=== PATIENT | female | born 1935 | race Caucasian/White ===

== ENCOUNTER → 2018-05-10 | Outpatient (CLI) | payer MEDICARE, OTHER | END | disposition home or self-care (01) | LOC: PCVCCLINIC 15:45 | DX: I25.10 Atherosclerotic heart disease of native coronary artery without angina pectoris (principal); I10 Essential (primary) hypertension; E78.5 Hyperlipidemia, unspecified; K44.9 Diaphragmatic hernia without obstruction or gangrene; R94.31 Abnormal electrocardiogram [ECG] [EKG]; I42.9 Cardiomyopathy, unspecified; Z79.82 Long term (current) use of aspirin; Z79.899 Other long term (current) drug therapy; Z88.8 Allergy status to other drugs, medicaments and biological substances | CPT/HCPCS: 93005; G0463 ==

== ENCOUNTER → 2018-07-12 | Outpatient (CLI) | payer MEDICARE, OTHER ==
--- NOTE | 2018-07-12 12:19 | PCVCIMAG ---
APPROVED REPORT Study performed: 07/12/2018 10:05:04 EXAM: Comprehensive 2D, Doppler, and color-flow Echocardiogram Patient Location: Echo lab Status: routine BSA: 1.88 HR: 61 bpmBP: 136/80 mmHg Rhythm: NSR Other Information Study Quality: Adequate Risk Factors: Cardiac Risk Factors: HTN Indications CAD Cardiomyopathy 2D Dimensions LVEF(%): 63.95 (>50%) IVSd: 11.22 (7-11mm) LVDd: 35.91 mm PWd: 9.53 (7-11mm)Ascending Ao: 33.19 (22-36mm) LVDs: 23.69 (25-40mm) Left Atrium: 42.00 (27-40mm) Aortic Root: 29.89 mm LV Single Plane 4CH: 57.45 % LV Single Plane 2CH: 60.97 %Garcia's LVEF: 59.21 % Biplane EF: 59.1 % Volumes Left Atrial Volume (Systole) Single Plane 4CH: 83.29 mLSingle Plane 2CH: 57.34 mL LA ESV Index: 40.00 mL/m2 Aortic Valve AoV Peak Robert.: 1.34 m/s AO Peak Gr.: 7.23 mmHgLVOT Max P.96 mmHg LVOT Max V: 1.00 m/s AI Vmax: 4.43 m/s AI Bryan: 2.41 m/s2 AI PHT: 532.94 ms Mitral Valve E/A Ratio: 2.4 MV Decel. Time: 219.65 ms MV E Max Robert.: 0.83 m/s MV A Robert.: 0.34 m/s IVRT: 124.57 ms Pulmonary Valve PV Peak Robert.: 0.88 m/sPV Peak Gr.: 3.07 mmHg Pulmonary Vein P Vein S: 0.26 m/sP Vein A: 0.26 m/s P Vein D: 0.36 m/sP Vein A Dur.: 124.6 msec P Vein S/D Ratio: 0.72 Tricuspid Valve TR Peak Robert.: 2.72 m/s TR Peak Gr.: 29.59 mmHg Left Ventricle The left ventricle is normal size. There is normal LV segmental wall motion. There is normal left ventricular wall thickness. Left ventricular systolic function is normal. The left ventricular ejection fraction is within the normal range. LVEF is 55-60%. Grade II - pseudonormal filling dynamics. Right Ventricle The right ventricle is normal size. The right ventricular systolic function is normal. Atria Left atrium is mildly dilated. The right atrium size is mildly dilated. Aortic Valve The aortic valve is mildly sclerotic. Mild aortic regurgitation. There is no aortic valvular stenosis. Mitral Valve Mild mitral annular calcification. Mild to moderate mitral regurgitation. No evidence of mitral valve stenosis. Tricuspid Valve The tricuspid valve is normal in structure. Mild tricuspid regurgitation with PAP of 37 mmHg. Pulmonic Valve The pulmonary valve is normal in structure. Mild to moderate pulmonic regurgitation. Great Vessels The aortic root is normal in size. IVC is normal in size and collapses with >50% inspiration Pericardium There is no pericardial effusion. There is no pleural effusion. <Conclusion> Left ventricular systolic function is normal. There is normal LV segmental wall motion. LVEF is 55-60%. Moderate diastolic dysfunction Both atria are mildly dilated. The aortic valve is mildly sclerotic. Mild aortic regurgitation, no stenosis. Mild mitral annular calcification. Mild to moderate mitral regurgitation. Mild tricuspid regurgitation with pulmonary artery pressure of 37 mmHg. There is no pericardial effusion.
== END | disposition home or self-care (01) ==
LOC: PCVCIMAG 13:00
PROVIDERS: ATTEND Internal Medicine
DX: I08.3 Combined rheumatic disorders of mitral, aortic and tricuspid valves (principal); I42.9 Cardiomyopathy, unspecified; I10 Essential (primary) hypertension; I25.10 Atherosclerotic heart disease of native coronary artery without angina pectoris; E78.5 Hyperlipidemia, unspecified; K44.9 Diaphragmatic hernia without obstruction or gangrene; Z79.82 Long term (current) use of aspirin; Z79.899 Other long term (current) drug therapy; Z88.8 Allergy status to other drugs, medicaments and biological substances
CPT/HCPCS: 93005; 93306; G0463